=== PATIENT | female | born 1955 | race Two or more races ===

== ENCOUNTER → 2019-02-14 | Outpatient (CLI) | payer OTHER | END | disposition home or self-care (01) | LOC: TOM 10:07 | DX: E66.8 Other obesity (principal); Z12.31 Encounter for screening mammogram for malignant neoplasm of breast; I10 Essential (primary) hypertension; R51 Headache; H93.19 Tinnitus, unspecified ear ==

== ENCOUNTER 2019-12-28 14:37 | Outpatient (CLI) | payer OTHER | END 2019-12-28 14:58 | disposition home or self-care (01) | LOC: SONOGRAMA 14:37 | DX: R10.2 Pelvic and perineal pain (principal) ==

== ENCOUNTER 2020-08-16 10:36 | Outpatient (CLI) | payer OTHER | END 2020-08-16 11:04 | disposition home or self-care (01) | LOC: RAD 10:36 | PROVIDERS: ATTEND Specialist | DX: Z12.31 Encounter for screening mammogram for malignant neoplasm of breast (principal); M23.201 Derangement of unspecified lateral meniscus due to old tear or injury, left knee; M23.200 Derangement of unspecified lateral meniscus due to old tear or injury, right knee | CPT/HCPCS: 73721 ==

== ENCOUNTER 2020-08-16 11:24 | Outpatient (CLI) | payer OTHER | END 2020-08-16 13:37 | disposition home or self-care (01) | LOC: NUCLEAR 11:24 | PROVIDERS: ATTEND Radiology Nuclear Radiology | DX: I83.813 Varicose veins of bilateral lower extremities with pain (principal) ==